=== PATIENT | female | born 1995 | race Hispanic/Latino ===

== ENCOUNTER 2020-03-11 09:40 | Day surgery (SDC) | payer MEDICAID ==
[2020-03-11] VITALS (14 sets, daily range): BP systolic 18–141; BP diastolic 67–90
[~2020-03-11] VITALS: Ht 162.6 cm; Wt 71.7 kg
[~2020-03-11 09:40] MED LIST: FENTANYL CITRATE PF 50 MCG/1 ML 2ML VIAL ONE; INDOMETHACIN 50 MG SUPP.RECT RC SCH; IOHEXOL-350 50ML VIAL IV ONE; LIDOCAINE HCL 2% 20ML ONE; MEPERIDINE-PF 25 MG/ML SYG ONE; MIDAZOLAM HCL 1 MG/ML 2ML VIAL ONE; ONDANSETRON HCL 4 MG/2 ML VIAL ONE; PROPOFOL 10 MG/ML 20ML VIAL IV ONE; SODIUM CHLORIDE 0.9% 1000ML 1,000 ML IV ONE; SODIUM CHLORIDE 0.9% 500ML 0 ML IV ONE; SUCCINYLCHOLINE 200MG/10ML SYR ONE
== END 2020-03-11 09:55 | disposition home or self-care (01) ==
LOC: DAH 09:40 → ENDO 09:40
PROVIDERS: ATTEND Internal Medicine
DX: R93.2 Abnormal findings on diagnostic imaging of liver and biliary tract (principal); R17 Unspecified jaundice; K80.50 Calculus of bile duct without cholangitis or cholecystitis without obstruction
CPT/HCPCS: 43265; 43273; 43276; 74330; 81025; A4215; A4221; A4222; A4223; A4606; A4657 ×3; A4663; C1769 ×2; C1773; C2625; J0330; J2175; J2250; J2405 ×2; J2704; J3010; J3490; J7030; Q9967; 43249; J7040